=== PATIENT | female | born 1940 | race Asian ===

== ENCOUNTER 2017-11-23 16:52 | Inpatient (IN) | payer MEDICARE ==
[2017-11-23] MEDS ORDERED: ONDANSETRON 4 MG INJ IV (18:30)
[2017-11-23] MEDS ORDERED: IPRATROPIUM (NEB) 0.5 MG/2.5 ML AMP INH (18:30)
[2017-11-23] MEDS ORDERED: LEVALBUTEROL (NEB) 0.63 MG/3 ML AMP INH (18:30)
[2017-11-23] MEDS ORDERED: GLUCOSE GEL 15 GRAM TUBE BUCCAL (19:00)
[2017-11-23] MEDS ORDERED: DEXTROSE 50% 50 ML SYRINGE IV ×2 (19:00)
[2017-11-23] MEDS ORDERED: ACETAMINOPHEN 325 MG TAB PO (19:00)
[2017-11-23] MEDS ORDERED: GLUCAGON 1 MG INJ IM (19:00)
[2017-11-23] MEDS ORDERED: MECLIZINE 12.5 MG TAB PO (19:00)
[2017-11-23] MEDS ORDERED: BISACODYL 10 MG SUPP PR (19:00)
[2017-11-23] MEDS ORDERED: GLUCOSE GEL 15 GRAM TUBE PO ×2 (19:00)
[2017-11-23] MEDS ORDERED: MAGNESIUM HYDROXIDE 30ML CUP PO (19:00)
[2017-11-23 19:38] LABS: ADD UMIC YES; UR ASCORBIC ACID NEGATIVE (NEGATIVE); UR BILIRUBIN (Dip) NEGATIVE (NEGATIVE); UR BLOOD (Dip) NEGATIVE (NEGATIVE); UR CLARITY CLEAR (CLEAR); UR COLOR YELLOW (YELLOW); UR GLUCOSE (Dip) 1+ mg/dL (NEGATIVE); UR KETONES (Dip) NEGATIVE (NEGATIVE); UR LEUKOCYTE ESTERASE (Dip) NEGATIVE Leu/ul (NEGATIVE); UR NITRITE (Dip) NEGATIVE (NEGATIVE); UR RBC 1 /HPF (0-5); UR SPECIFIC GRAVITY (Dip) 1.014 (1.003-1.030); UR TOTAL PROTEIN (Dip) 2+ mg/dl (NEGATIVE); UR UROBILINOGEN (Dip) NEGATIVE (NEGATIVE); UR WBC 0 /HPF (0-5)
[2017-11-23] MEDS: ATORVASTATIN 20 MG TAB PO (20:45)
[2017-11-23] MEDS: clonAZEPAM 0.5 MG TAB PO (20:46)
[2017-11-23] MEDS: DOCUSATE SODIUM 100 MG CAP PO (20:46)
[2017-11-23] MEDS: SENNA TAB PO (20:46)
[2017-11-23] MEDS ORDERED: [UNRECOGNIZED DRUG - OTHER] SC (21:00)
[2017-11-23] MEDS: HEPARIN 5,000 UNIT/0.5 ML VIAL SC (21:29)
[2017-11-23] MEDS: INSULIN DETEMIR [LEVEMIR] 3ML CART SC (21:30)
[2017-11-23] MEDS: Insulin NOVOLOG SS MODERATE Algorithm (SS with meals and bedtime) SC (22:22)
[2017-11-24] MEDS: ACCUCHECK AT 2AM (Patients on SS coverage) XX (02:51)
[2017-11-24 06:50] LABS: ADD MAN DIFF? NO
[2017-11-24 06:58] LABS: BASOPHIL # 0.1 10^3/ul (0.0-0.1); BASOPHILS % 0.5 % (0.0-2.0); EOSINOPHILS # 0.3 10^3/ul (0.0-0.5); EOSINOPHILS % 2.3 % (0.0-7.0); HEMATOCRIT 28.3 % (37.0-47.0); HEMOGLOBIN 9.3 g/dl (12.0-16.0); LYMPHOCYTES # 2.7 10^3/ul (0.8-2.9); LYMPHOCYTES % 21.1 % (15.0-51.0); MEAN CORPUSCULAR HEMOGLOBIN 29.5 pg (29.0-33.0); MEAN CORPUSCULAR HGB CONC 32.9 g/dl (32.0-37.0); MEAN CORPUSCULAR VOLUME 89.8 fl (82.0-101.0); MEAN PLATELET VOLUME 9.8 fl (7.4-10.4); MONOCYTES % 7.5 % (0.0-11.0); NEUTROPHIL # 8.4 10^3/ul (1.6-7.5); PLATELET COUNT 494 10^3/UL (140-415); RED BLOOD COUNT 3.15 10^6/ul (4.20-5.40); RED CELL DISTRIBUTION WIDTH 14.7 % (11.5-14.5)
[2017-11-24 06:58] LABS: WHITE BLOOD COUNT 12.8 10^3/ul (4.8-10.8)
[2017-11-24 07:30] LABS: ALANINE AMINOTRANSFERASE 49 IU/L (13-69); ALBUMIN 2.3 g/dl (3.3-4.9); ALBUMIN/GLOBULIN RATIO 0.82; ALKALINE PHOSPHATASE 78 IU/L (42-121); ANION GAP 8 (8-16); ASPARTATE AMINO TRANSFERASE 34 IU/L (15-46); BLOOD UREA NITROGEN 23 mg/dl (7-20); CALCIUM 7.9 mg/dl (8.4-10.2); CARBON DIOXIDE 26 mmol/L (21-31); CHLORIDE 110 mmol/L (97-110); CREATININE 1.08 mg/dl (0.44-1.00); GLUCOSE 127 mg/dl (70-220); POTASSIUM 4.7 mmol/L (3.5-5.1); SODIUM 139 mmol/L (135-144); TOTAL PROTEIN 5.1 g/dl (6.1-8.1)
[2017-11-24] MEDS: Insulin NOVOLOG SS MODERATE Algorithm (SS with meals and bedtime) SC ×4 (07:35→20:43)
[2017-11-24] MEDS: COLLAGENASE 30 GM TUBE TOP (08:11)
[2017-11-24] MEDS: ASPIRIN 325 MG TAB PO (08:13)
[2017-11-24] MEDS: POTASSIUM CHLORIDE (SR) 20 MEQ TAB PO (08:13)
[2017-11-24] MEDS: clonAZEPAM 0.5 MG TAB PO ×3 (08:13→20:44)
[2017-11-24] MEDS: DOCUSATE SODIUM 100 MG CAP PO ×2 (08:13→20:39)
[2017-11-24] MEDS: HEPARIN 5,000 UNIT/0.5 ML VIAL SC ×2 (08:13→20:42)
[2017-11-24] MEDS: LOSARTAN 50 MG TAB PO (08:14)
[2017-11-24] MEDS: NIFEdipine (XL) 30 MG TAB PO (08:14)
[2017-11-24] MEDS: SENNA TAB PO (20:39)
[2017-11-24] MEDS: ATORVASTATIN 20 MG TAB PO (20:39)
[2017-11-24] MEDS: INSULIN DETEMIR [LEVEMIR] 3ML CART SC (20:42)
[2017-11-25] MEDS: ACCUCHECK AT 2AM (Patients on SS coverage) XX (02:00)
[2017-11-25] MEDS: Insulin NOVOLOG SS MODERATE Algorithm (SS with meals and bedtime) SC ×4 (07:35→20:49)
[2017-11-25 08:02] LABS: ADD MAN DIFF? NO
[2017-11-25 08:04] LABS: WHITE BLOOD COUNT 13.1 10^3/ul (4.8-10.8)
[2017-11-25 08:04] LABS: BASOPHIL # 0.1 10^3/ul (0.0-0.1); BASOPHILS % 0.4 % (0.0-2.0); EOSINOPHILS # 0.3 10^3/ul (0.0-0.5); EOSINOPHILS % 1.9 % (0.0-7.0); HEMATOCRIT 27.9 % (37.0-47.0); HEMOGLOBIN 9.2 g/dl (12.0-16.0); LYMPHOCYTES # 2.3 10^3/ul (0.8-2.9); LYMPHOCYTES % 17.9 % (15.0-51.0); MEAN CORPUSCULAR HEMOGLOBIN 29.6 pg (29.0-33.0); MEAN CORPUSCULAR VOLUME 89.7 fl (82.0-101.0); MEAN PLATELET VOLUME 10.2 fl (7.4-10.4); MONOCYTES % 7.9 % (0.0-11.0); NEUTROPHIL # 9.2 10^3/ul (1.6-7.5); NEUTROPHILS % 70.2 % (39.0-77.0); PLATELET COUNT 548 10^3/UL (140-415); RED BLOOD COUNT 3.11 10^6/ul (4.20-5.40); RED CELL DISTRIBUTION WIDTH 14.9 % (11.5-14.5)
[2017-11-25 08:25] LABS: ANION GAP 8 (8-16); BLOOD UREA NITROGEN 25 mg/dl (7-20); CALCIUM 8.4 mg/dl (8.4-10.2); CARBON DIOXIDE 28 mmol/L (21-31); CHLORIDE 109 mmol/L (97-110); CREATININE 1.08 mg/dl (0.44-1.00); GLUCOSE 75 mg/dl (70-220); MAGNESIUM 2.1 mg/dl (1.7-2.5); PHOSPHORUS 3.9 mg/dl (2.5-4.9); POTASSIUM 4.5 mmol/L (3.5-5.1); SODIUM 140 mmol/L (135-144)
[2017-11-25] MEDS: RISPERIDONE 0.25 MG TAB PO ×2 (08:47→20:33)
[2017-11-25] MEDS: POTASSIUM CHLORIDE (SR) 20 MEQ TAB PO (08:47)
[2017-11-25] MEDS: clonAZEPAM 0.5 MG TAB PO ×3 (08:47→20:33)
[2017-11-25] MEDS: ASPIRIN 325 MG TAB PO (08:47)
[2017-11-25] MEDS: DOCUSATE SODIUM 100 MG CAP PO ×2 (08:47→20:33)
[2017-11-25] MEDS: LOSARTAN 50 MG TAB PO (08:48)
[2017-11-25] MEDS: NIFEdipine (XL) 30 MG TAB PO (08:48)
[2017-11-25] MEDS: HEPARIN 5,000 UNIT/0.5 ML VIAL SC ×2 (08:49→20:48)
[2017-11-25] MEDS: COLLAGENASE 30 GM TUBE TOP (08:51)
[2017-11-25] MEDS ORDERED: ENOXAPARIN 30 MG/0.3 ML SYG SC (09:00)
[2017-11-25] MEDS ORDERED: clonAZEPAM 0.5 MG TAB PO (09:00)
[2017-11-25] MEDS: ACETAMINOPHEN 325 MG TAB PO (16:20)
[2017-11-25] MEDS: SENNA TAB PO (20:33)
[2017-11-25] MEDS: ATORVASTATIN 20 MG TAB PO (20:34)
[2017-11-25] MEDS: INSULIN DETEMIR [LEVEMIR] 3ML CART SC (20:47)
[2017-11-26] MEDS: ACCUCHECK AT 2AM (Patients on SS coverage) XX (01:48)
[2017-11-26 07:32] LABS: ADD MAN DIFF? NO
[2017-11-26] MEDS: Insulin NOVOLOG SS MODERATE Algorithm (SS with meals and bedtime) SC ×4 (07:35→20:52)
[2017-11-26 07:41] LABS: WHITE BLOOD COUNT 13.1 10^3/ul (4.8-10.8)
[2017-11-26 07:41] LABS: BASOPHIL # 0.1 10^3/ul (0.0-0.1); BASOPHILS % 0.5 % (0.0-2.0); EOSINOPHILS # 0.2 10^3/ul (0.0-0.5); EOSINOPHILS % 1.6 % (0.0-7.0); HEMATOCRIT 28.4 % (37.0-47.0); HEMOGLOBIN 9.2 g/dl (12.0-16.0); LYMPHOCYTES # 2.5 10^3/ul (0.8-2.9); LYMPHOCYTES % 18.9 % (15.0-51.0); MEAN CORPUSCULAR HEMOGLOBIN 29.4 pg (29.0-33.0); MEAN CORPUSCULAR HGB CONC 32.4 g/dl (32.0-37.0); MEAN CORPUSCULAR VOLUME 90.7 fl (82.0-101.0); MEAN PLATELET VOLUME 10.4 fl (7.4-10.4); MONOCYTE # 1.2 10^3/ul (0.3-0.9); MONOCYTES % 9.4 % (0.0-11.0); NEUTROPHIL # 8.9 10^3/ul (1.6-7.5); NEUTROPHILS % 68.3 % (39.0-77.0); PLATELET COUNT 502 10^3/UL (140-415); RED BLOOD COUNT 3.13 10^6/ul (4.20-5.40); RED CELL DISTRIBUTION WIDTH 14.4 % (11.5-14.5)
[2017-11-26 08:11] LABS: ANION GAP 11 (8-16); BLOOD UREA NITROGEN 24 mg/dl (7-20); CALCIUM 8.3 mg/dl (8.4-10.2); CARBON DIOXIDE 26 mmol/L (21-31); CHLORIDE 108 mmol/L (97-110); CREATININE 1.13 mg/dl (0.44-1.00); GLUCOSE 78 mg/dl (70-220); PHOSPHORUS 4.2 mg/dl (2.5-4.9); POTASSIUM 4.4 mmol/L (3.5-5.1); SODIUM 141 mmol/L (135-144)
[2017-11-26] MEDS: HEPARIN 5,000 UNIT/0.5 ML VIAL SC ×2 (10:00→20:51)
[2017-11-26] MEDS: ACETAMINOPHEN 325 MG TAB PO (10:00)
[2017-11-26] MEDS: DOCUSATE SODIUM 100 MG CAP PO ×2 (10:00→20:34)
[2017-11-26] MEDS: POTASSIUM CHLORIDE (SR) 20 MEQ TAB PO (10:00)
[2017-11-26] MEDS: ASPIRIN 325 MG TAB PO (10:00)
[2017-11-26] MEDS: RISPERIDONE 0.25 MG TAB PO ×2 (10:00→20:36)
[2017-11-26] MEDS: LOSARTAN 50 MG TAB PO (10:01)
[2017-11-26] MEDS: NIFEdipine (XL) 30 MG TAB PO (10:01)
[2017-11-26] MEDS: clonAZEPAM 0.5 MG TAB PO ×3 (10:02→20:34)
[2017-11-26] MEDS: COLLAGENASE 30 GM TUBE TOP (10:08)
[2017-11-26] MEDS ORDERED: ESCITALOPRAM 10 MG TAB (12:27)
[2017-11-26] MEDS: ESCITALOPRAM 10 MG TAB PO (12:30)
[2017-11-26] MEDS: SENNA TAB PO (20:34)
[2017-11-26] MEDS: ATORVASTATIN 20 MG TAB PO (20:36)
[2017-11-26] MEDS: INSULIN DETEMIR [LEVEMIR] 3ML CART SC (20:52)
[2017-11-27] MEDS: ACCUCHECK AT 2AM (Patients on SS coverage) XX (02:00)
[2017-11-27] MEDS: Insulin NOVOLOG SS MODERATE Algorithm (SS with meals and bedtime) SC ×4 (07:35→20:38)
[2017-11-27 07:40] LABS: ADD MAN DIFF? NO
[2017-11-27 07:47] LABS: WHITE BLOOD COUNT 10.2 10^3/ul (4.8-10.8)
[2017-11-27 07:47] LABS: BASOPHILS % 0.4 % (0.0-2.0); EOSINOPHILS # 0.2 10^3/ul (0.0-0.5); EOSINOPHILS % 1.8 % (0.0-7.0); HEMATOCRIT 27.8 % (37.0-47.0); HEMOGLOBIN 8.9 g/dl (12.0-16.0); LYMPHOCYTES # 1.8 10^3/ul (0.8-2.9); LYMPHOCYTES % 17.2 % (15.0-51.0); MEAN CORPUSCULAR HEMOGLOBIN 29.4 pg (29.0-33.0); MEAN CORPUSCULAR VOLUME 91.7 fl (82.0-101.0); MEAN PLATELET VOLUME 10.2 fl (7.4-10.4); MONOCYTE # 1.1 10^3/ul (0.3-0.9); MONOCYTES % 10.9 % (0.0-11.0); NEUTROPHILS % 68.4 % (39.0-77.0); PLATELET COUNT 525 10^3/UL (140-415); RED BLOOD COUNT 3.03 10^6/ul (4.20-5.40); RED CELL DISTRIBUTION WIDTH 14.4 % (11.5-14.5)
[2017-11-27] MEDS: DOCUSATE SODIUM 100 MG CAP PO ×2 (10:47→20:36)
[2017-11-27] MEDS: POTASSIUM CHLORIDE (SR) 20 MEQ TAB PO (10:47)
[2017-11-27] MEDS: ASPIRIN 325 MG TAB PO (10:47)
[2017-11-27] MEDS: NIFEdipine (XL) 30 MG TAB PO (10:48)
[2017-11-27] MEDS: ESCITALOPRAM 10 MG TAB PO (10:48)
[2017-11-27] MEDS: LOSARTAN 50 MG TAB PO (10:48)
[2017-11-27] MEDS: clonAZEPAM 0.5 MG TAB PO ×3 (10:50→20:36)
[2017-11-27] MEDS: ACETAMINOPHEN 325 MG TAB PO (10:51)
[2017-11-27] MEDS: RISPERIDONE 1 MG TAB PO ×2 (10:51→20:36)
[2017-11-27] MEDS: HEPARIN 5,000 UNIT/0.5 ML VIAL SC ×2 (10:53→20:42)
[2017-11-27] MEDS: COLLAGENASE 30 GM TUBE TOP (10:54)
[2017-11-27] MEDS: SENNA TAB PO (20:36)
[2017-11-27] MEDS: ATORVASTATIN 20 MG TAB PO (20:36)
[2017-11-27] MEDS: INSULIN DETEMIR [LEVEMIR] 3ML CART SC (20:42)
[2017-11-28] MEDS: ACCUCHECK AT 2AM (Patients on SS coverage) XX (02:00)
[2017-11-28] MEDS: Insulin NOVOLOG SS MODERATE Algorithm (SS with meals and bedtime) SC ×4 (08:44→21:22)
[2017-11-28] MEDS: HEPARIN 5,000 UNIT/0.5 ML VIAL SC ×2 (08:45→21:22)
[2017-11-28] MEDS: LACTULOSE 30ML CUP PO (08:45)
[2017-11-28] MEDS: RISPERIDONE 1 MG TAB PO ×2 (08:45→21:16)
[2017-11-28] MEDS: LOSARTAN 50 MG TAB PO (08:45)
[2017-11-28] MEDS: clonAZEPAM 0.5 MG TAB PO ×3 (08:46→21:16)
[2017-11-28] MEDS: NIFEdipine (XL) 30 MG TAB PO (08:46)
[2017-11-28] MEDS: POTASSIUM CHLORIDE (SR) 20 MEQ TAB PO (08:46)
[2017-11-28] MEDS: ESCITALOPRAM 10 MG TAB PO (08:46)
[2017-11-28] MEDS: ASPIRIN 325 MG TAB PO (08:47)
[2017-11-28] MEDS: DOCUSATE SODIUM 100 MG CAP PO ×2 (08:47→21:00)
[2017-11-28] MEDS: COLLAGENASE 30 GM TUBE TOP (08:48)
[2017-11-28] MEDS: SENNA TAB PO (21:00)
[2017-11-28] MEDS: ATORVASTATIN 20 MG TAB PO (21:16)
[2017-11-28] MEDS: INSULIN DETEMIR [LEVEMIR] 3ML CART SC (21:23)
[2017-11-28] MEDS: ACETAMINOPHEN 325 MG TAB PO (21:26)
[2017-11-29] MEDS: ACCUCHECK AT 2AM (Patients on SS coverage) XX (02:00)
[2017-11-29] MEDS: Insulin NOVOLOG SS MODERATE Algorithm (SS with meals and bedtime) SC ×4 (08:17→21:00)
[2017-11-29] MEDS: DOCUSATE SODIUM 100 MG CAP PO ×2 (09:00→20:55)
[2017-11-29] MEDS: clonAZEPAM 0.5 MG TAB PO ×3 (09:55→20:56)
[2017-11-29] MEDS: NIFEdipine (XL) 30 MG TAB PO (09:56)
[2017-11-29] MEDS: RISPERIDONE 1 MG TAB PO ×2 (09:56→20:56)
[2017-11-29] MEDS: ESCITALOPRAM 10 MG TAB PO (09:57)
[2017-11-29] MEDS: POTASSIUM CHLORIDE (SR) 20 MEQ TAB PO (09:57)
[2017-11-29] MEDS: ASPIRIN 325 MG TAB PO (09:58)
[2017-11-29] MEDS: LOSARTAN 50 MG TAB PO (09:58)
[2017-11-29] MEDS: HEPARIN 5,000 UNIT/0.5 ML VIAL SC ×2 (10:01→21:03)
[2017-11-29] MEDS: COLLAGENASE 30 GM TUBE TOP (10:05)
[2017-11-29] MEDS: SENNA TAB PO (20:55)
[2017-11-29] MEDS: ATORVASTATIN 20 MG TAB PO (20:56)
[2017-11-29] MEDS: INSULIN DETEMIR [LEVEMIR] 3ML CART SC (21:04)
[2017-11-30] MEDS: ACCUCHECK AT 2AM (Patients on SS coverage) XX (02:00)
[2017-11-30] MEDS: Insulin NOVOLOG SS MODERATE Algorithm (SS with meals and bedtime) SC ×4 (07:35→20:45)
[2017-11-30] MEDS: DOCUSATE SODIUM 100 MG CAP PO ×2 (09:08→20:41)
[2017-11-30] MEDS: RISPERIDONE 1 MG TAB PO ×2 (09:08→20:41)
[2017-11-30] MEDS: NIFEdipine (XL) 30 MG TAB PO (09:10)
[2017-11-30] MEDS: HEPARIN 5,000 UNIT/0.5 ML VIAL SC ×2 (09:10→20:43)
[2017-11-30] MEDS: ESCITALOPRAM 10 MG TAB PO (09:10)
[2017-11-30] MEDS: LINAGLIPTIN 5 MG TABLET PO (09:10)
[2017-11-30] MEDS: clonAZEPAM 0.5 MG TAB PO ×3 (09:10→20:41)
[2017-11-30] MEDS: ASPIRIN 325 MG TAB PO (09:10)
[2017-11-30] MEDS: LOSARTAN 50 MG TAB PO (09:11)
[2017-11-30] MEDS: POTASSIUM CHLORIDE (SR) 20 MEQ TAB PO (09:11)
[2017-11-30] MEDS: COLLAGENASE 30 GM TUBE TOP (09:17)
[2017-11-30] MEDS: SENNA TAB PO (20:41)
[2017-11-30] MEDS: ATORVASTATIN 20 MG TAB PO (20:41)
[2017-11-30] MEDS: INSULIN DETEMIR [LEVEMIR] 3ML CART SC (20:43)
[2017-12-01] MEDS: ACCUCHECK AT 2AM (Patients on SS coverage) XX (02:00)
[2017-12-01 07:29] LABS: ADD MAN DIFF? NO
[2017-12-01 07:33] LABS: BASOPHIL # 0.1 10^3/ul (0.0-0.1); BASOPHILS % 0.9 % (0.0-2.0); EOSINOPHILS # 0.1 10^3/ul (0.0-0.5); EOSINOPHILS % 1.3 % (0.0-7.0); HEMOGLOBIN 9.5 g/dl (12.0-16.0); LYMPHOCYTES # 1.8 10^3/ul (0.8-2.9); LYMPHOCYTES % 20.1 % (15.0-51.0); MEAN CORPUSCULAR HEMOGLOBIN 29.4 pg (29.0-33.0); MEAN CORPUSCULAR HGB CONC 32.8 g/dl (32.0-37.0); MEAN CORPUSCULAR VOLUME 89.8 fl (82.0-101.0); MEAN PLATELET VOLUME 9.8 fl (7.4-10.4); MONOCYTE # 0.9 10^3/ul (0.3-0.9); MONOCYTES % 9.7 % (0.0-11.0); NEUTROPHILS % 66.4 % (39.0-77.0); PLATELET COUNT 469 10^3/UL (140-415); RED BLOOD COUNT 3.23 10^6/ul (4.20-5.40)
[2017-12-01 07:53] LABS: ANION GAP 14 (8-16); BLOOD UREA NITROGEN 21 mg/dl (7-20); CALCIUM 8.1 mg/dl (8.4-10.2); CARBON DIOXIDE 24 mmol/L (21-31); CHLORIDE 106 mmol/L (97-110); CREATININE 1.37 mg/dl (0.44-1.00); GLUCOSE 221 mg/dl (70-220); POTASSIUM 5.6 mmol/L (3.5-5.1); SODIUM 138 mmol/L (135-144)
[2017-12-01] MEDS: Insulin NOVOLOG SS MODERATE Algorithm (SS with meals and bedtime) SC ×4 (08:02→21:00)
[2017-12-01] MEDS: HEPARIN 5,000 UNIT/0.5 ML VIAL SC ×2 (09:18→22:01)
[2017-12-01] MEDS: RISPERIDONE 1 MG TAB PO ×2 (09:18→21:56)
[2017-12-01] MEDS: POTASSIUM CHLORIDE (SR) 20 MEQ TAB PO (09:19)
[2017-12-01] MEDS: clonAZEPAM 0.5 MG TAB PO ×3 (09:19→21:56)
[2017-12-01] MEDS: LOSARTAN 50 MG TAB PO (09:19)
[2017-12-01] MEDS: ASPIRIN 325 MG TAB PO (09:20)
[2017-12-01] MEDS: LINAGLIPTIN 5 MG TABLET PO (09:20)
[2017-12-01] MEDS: DOCUSATE SODIUM 100 MG CAP PO ×2 (09:20→21:00)
[2017-12-01] MEDS: NIFEdipine (XL) 30 MG TAB PO (09:20)
[2017-12-01] MEDS: ESCITALOPRAM 10 MG TAB PO (09:20)
[2017-12-01] MEDS: COLLAGENASE 30 GM TUBE TOP (09:21)
[2017-12-01] MEDS: ACETAMINOPHEN 325 MG TAB PO (12:24)
[2017-12-01] MEDS: SENNA TAB PO (21:00)
[2017-12-01] MEDS: ATORVASTATIN 20 MG TAB PO (21:55)
[2017-12-01] MEDS: INSULIN DETEMIR [LEVEMIR] 3ML CART SC (22:01)
[2017-12-02] MEDS: ACCUCHECK AT 2AM (Patients on SS coverage) XX (02:00)
[2017-12-02] MEDS: Insulin NOVOLOG SS MODERATE Algorithm (SS with meals and bedtime) SC (07:35)
[2017-12-02 07:52] LABS: ANION GAP 12 (8-16); BLOOD UREA NITROGEN 29 mg/dl (7-20); CARBON DIOXIDE 24 mmol/L (21-31); CHLORIDE 106 mmol/L (97-110); GLUCOSE 126 mg/dl (70-220); PHOSPHORUS 5.3 mg/dl (2.5-4.9); POTASSIUM 5.4 mmol/L (3.5-5.1); SODIUM 137 mmol/L (135-144)
[2017-12-02] MEDS: DOCUSATE SODIUM 100 MG CAP PO (09:00)
[2017-12-02] MEDS: clonAZEPAM 0.5 MG TAB PO (09:41)
[2017-12-02] MEDS: NIFEdipine (XL) 30 MG TAB PO (09:44)
[2017-12-02] MEDS: LINAGLIPTIN 5 MG TABLET PO (09:45)
[2017-12-02] MEDS: RISPERIDONE 1 MG TAB PO (09:45)
[2017-12-02] MEDS: ESCITALOPRAM 10 MG TAB PO (09:45)
[2017-12-02] MEDS: COLLAGENASE 30 GM TUBE TOP (09:47)
[2017-12-02] MEDS: HEPARIN 5,000 UNIT/0.5 ML VIAL SC (09:47)
[2017-12-02] MEDS: ASPIRIN 325 MG TAB PO (09:48)
[2017-12-02] MEDS: LOSARTAN 50 MG TAB PO (09:48)
== END 2017-12-02 11:25 | DRG 57 ==
LOC: VRC 16:52
PROVIDERS: Internal Medicine
DX: I69.398 Other sequelae of cerebral infarction (principal); L89.312 Pressure ulcer of right buttock, stage 2; E11.22 Type 2 diabetes mellitus with diabetic chronic kidney disease; R45.851 Suicidal ideations; N18.3 Chronic kidney disease, stage 3 (moderate); F01.50 Vascular dementia, unspecified severity, without behavioral disturbance, psychotic disturbance, mood disturbance, and anxiety; G25.5 Other chorea; D64.9 Anemia, unspecified; G24.9 Dystonia, unspecified; I25.2 Old myocardial infarction; E66.9 Obesity, unspecified; Z68.26 Body mass index [BMI] 26.0-26.9, adult; I12.9 Hypertensive chronic kidney disease with stage 1 through stage 4 chronic kidney disease, or unspecified chronic kidney disease; I25.10 Atherosclerotic heart disease of native coronary artery without angina pectoris; D72.829 Elevated white blood cell count, unspecified; M19.90 Unspecified osteoarthritis, unspecified site; E03.9 Hypothyroidism, unspecified; R47.1 Dysarthria and anarthria; I69.315 Cognitive social or emotional deficit following cerebral infarction; F39 Unspecified mood [affective] disorder; F32.9 Major depressive disorder, single episode, unspecified; R27.0 Ataxia, unspecified
CPT/HCPCS: 80048; 80053; 81001; 82962; 83735; 84100; 85025; 87081; 87086; 92507; 92523; 92526; 92610; 97110; 97112; 97163; 97167; 97530; 97535

== ENCOUNTER → 2018-01-05 | Outpatient (CLI) | payer MEDICARE ==
[~2018-01-05] MED LIST: BARIUM SULFATE 135 ML (E-Z HD) PO
== END | disposition home or self-care (01) ==
LOC: RAD 08:21
DX: R05 Cough (principal)
CPT/HCPCS: 74230; 92611

== ENCOUNTER 2018-01-10 11:49 | Emergency (ER) | payer MEDICARE, MEDICAID ==
[2018-01-10] MEDS: SOD CHLORIDE 0.9% 500 ML IV (12:25)
[2018-01-10 12:34] LABS: ADD MAN DIFF? NO
[2018-01-10 12:35] LABS: WHITE BLOOD COUNT 13.4 10^3/ul (4.8-10.8)
[2018-01-10 12:35] LABS: BASOPHIL # 0.1 10^3/ul (0.0-0.1); BASOPHILS % 0.8 % (0.0-2.0); EOSINOPHILS # 0.4 10^3/ul (0.0-0.5); EOSINOPHILS % 2.8 % (0.0-7.0); HEMATOCRIT 26.5 % (37.0-47.0); HEMOGLOBIN 8.9 g/dl (12.0-16.0); LYMPHOCYTES # 2.2 10^3/ul (0.8-2.9); LYMPHOCYTES % 16.5 % (15.0-51.0); MEAN CORPUSCULAR HEMOGLOBIN 29.4 pg (29.0-33.0); MEAN CORPUSCULAR HGB CONC 33.6 g/dl (32.0-37.0); MEAN CORPUSCULAR VOLUME 87.5 fl (82.0-101.0); MEAN PLATELET VOLUME 9.7 fl (7.4-10.4); MONOCYTE # 0.9 10^3/ul (0.3-0.9); MONOCYTES % 6.7 % (0.0-11.0); NEUTROPHIL # 9.6 10^3/ul (1.6-7.5); NEUTROPHILS % 71.9 % (39.0-77.0); PLATELET COUNT 339 10^3/UL (140-415); RED BLOOD COUNT 3.03 10^6/ul (4.20-5.40); RED CELL DISTRIBUTION WIDTH 13.5 % (11.5-14.5)
[2018-01-10 12:53] LABS: ANION GAP 16 (8-16); BLOOD UREA NITROGEN 29 mg/dl (7-20); CALCIUM 8.9 mg/dl (8.4-10.2); CARBON DIOXIDE 24 mmol/L (21-31); CHLORIDE 105 mmol/L (97-110); CREATININE 1.44 mg/dl (0.44-1.00); GLUCOSE 262 mg/dl (70-220); POTASSIUM 4.2 mmol/L (3.5-5.1); SODIUM 141 mmol/L (135-144)
[2018-01-10 12:57] LABS: ADD UMIC YES; UR AMORPHOUS CRYSTAL FEW /HPF (NONE SEEN); UR ASCORBIC ACID NEGATIVE (NEGATIVE); UR BACTERIA FEW /HPF (NONE SEEN); UR BILIRUBIN (Dip) NEGATIVE (NEGATIVE); UR BLOOD (Dip) NEGATIVE (NEGATIVE); UR CLARITY CLOUDY (CLEAR); UR COLOR YELLOW (YELLOW); UR GLUCOSE (Dip) 1+ mg/dL (NEGATIVE); UR KETONES (Dip) NEGATIVE (NEGATIVE); UR LEUKOCYTE ESTERASE (Dip) 1+ Leu/ul (NEGATIVE); UR NITRITE (Dip) NEGATIVE (NEGATIVE); UR RBC 2 /HPF (0-5); UR TOTAL PROTEIN (Dip) 2+ mg/dl (NEGATIVE); UR UROBILINOGEN (Dip) NEGATIVE (NEGATIVE); UR WBC 8 /HPF (0-5)
[2018-01-10] MEDS: CEFTRIAXONE 1 GM/50 ML (PMX) 50 ML IVPB (13:18)
== END 2018-01-10 18:12 | disposition home or self-care (01) ==
LOC: E/R 11:49
DX: N30.00 Acute cystitis without hematuria (principal); G93.40 Encephalopathy, unspecified; D64.9 Anemia, unspecified; N18.9 Chronic kidney disease, unspecified; E11.22 Type 2 diabetes mellitus with diabetic chronic kidney disease; I12.9 Hypertensive chronic kidney disease with stage 1 through stage 4 chronic kidney disease, or unspecified chronic kidney disease; Z66 Do not resuscitate; Z79.84 Long term (current) use of oral hypoglycemic drugs; Z79.82 Long term (current) use of aspirin
CPT/HCPCS: 36415; 71045; 80048; 81001; 85025; 87086; 93005; 96374; 99285-25